=== PATIENT | male | born 1955 | race Caucasian/White ===

== ENCOUNTER 2017-09-26 09:23 | Emergency (ER) | payer BC, SELFPAY ==
[2017-09-26 09:52] VITALS: BP 142/79; PULSE 83; RESP 16; TEMP 36.4; O2SAT 96; BMI 35.3
--- NOTE | 2017-09-26 10:15 | HMH.EDUTC ---
[facility] – [place] Disposition Clinical Impression: Cough Disposition: Home, Self-Care Condition on Discharge: Good Instructions: Cough Additional Instructions: Take medication as prescribed If symptoms do not improve or get worse, go see family doctor for further evaluation and work up Return if needed Make sure to drink plenty of fluids Rest, Sleep propped up at night may help with coughing Use Vaporizer or Humidifier at night may help with coughing and soothing of throat Prescriptions: Dextromethorphan Polistirex [Delsym] 10 ml PO Q12H PRN #200 jacob.er.12h PRN Reason: Cough Guaifenesin/Dextromethorphan [Mucinex Dm ER 1,200-60 mg Tab] 1 each PO Q12H #10 tab.er.12h Referrals: Will Ramirez [Primary Care Provider] - Time of Disposition: 10:46 Medical Decision Making - Medical Records Medical records reviewed: Yes: I reviewed the patient's medical records. Vital Signs: 09/26/17 09:52 Temperature 97.6 F Temperature Source Temporal Artery Scan Pulse Rate [Right Ulnar] 83 Respiratory Rate 16 Blood Pressure [Right Arm] 142/79 Blood Pressure Mean [Right Arm] 100 Blood Pressure Source [Right Arm] Automatic Cuff Blood Pressure Position [Right Arm] Sitting 02 Sat by Pulse Oximetry 96 Oxygen Delivery Method Room Air - Moe Inquiry Pt receiving controlled substance: No Moe was queried for this patient: No - Reevaluation(s) Time: 10:31 (Recommended chest xray and patient refused) [facility] [place] HPI - General Stated complaint: cough Mode of Arrival: Family Vehicle Source of Information: Patient Limitations: No Limitations Description of Symptoms (Recalled from Triage Doc. by RN): PT WAS DIAGNOSED WITH THE FLU SATURDAY BUT NOW COUGH IS WORSE. HEENT Symptoms (Recalled from RN notes): No Resp Symptoms (Recalled from RN notes): Yes (COUGH) Skin Symptoms (Recalled from RN notes): No MS Symptoms (Recalled from RN notes): No Functional Status (Recalled from RN notes): NA - History of Present Illness Provider Complaint: Patient states that his was diagnosed on Saturday with the flu State that he also got sick on Saturday and diagnosed himself with the flu State that he has not got any better and his cough is getting worse and he thinks he may need some prescription antibiotics - Related Data Home Medications Medication Instructions Recorded Confirmed Fenofibric Acid (Choline) 135 mg PO DAILY 09/26/17 09/26/17 [Fenofibric Acid] Lisinopril [Lisinopril 40mg Tablet] 40 mg PO DAILY 09/26/17 09/26/17 Pitavastatin Calcium [Livalo] 2 mg PO DAILY 09/26/17 09/26/17 Previous Rx's Medication Instructions Recorded Dextromethorphan Polistirex 10 ml PO Q12H PRN #200 jacob.er.12h 09/26/17 [Delsym] Guaifenesin/Dextromethorphan 1 each PO Q12H #10 tab.er.12h 09/26/17 [Mucinex Dm ER 1,200-60 mg Tab] Allergies Allergy/AdvReac Type Severity Reaction Status Date / Time No Known Allergies Allergy Verified 09/26/17 09:57 - Worker's Comp Is this a Worker's Comp case?: No [facility] History I have reviewed the patient's past medical history: Yes Medical History: Denies:: Cancer, Diabetes Mellitus Type 1, Diabetes Mellitus Type 2, MRSA Laterality Cases: Right: Cataract Amputation: No - *Social History Smoking Status: Never smoker Alcohol Intake: never - Psychiatric History Expresses thoughts of harming self/others: None Suicide Plan Description: No Plan ROS Obtained: Yes All systems reviewed & no additional complaints - Constitutional Constitutional: Reports body ache, Reports chills, Reports fever(s) - ENT Ears, Nose, Mouth, and Throat: Reports sore throat - Respiratory Respiratory: Yes cough, Yes non-productive cough Physical Exam - General General appearance: alert, in no apparent distress - ENT ENT exam: Present: normal exam, normal oropharynx, mucous membranes moist, TM's normal bilaterally, normal external ear exam - Respiratory Respiratory exam: Present: normal lung sounds bilaterally
--- NOTE | 2017-09-26 10:24 | ED_ITS ---
[facility] [place] Clinical Impression: Cough Disposition: Home, Self-Care Condition on Discharge: Good Instructions: Cough Additional Instructions: Take medication as prescribed If symptoms do not improve or get worse, go see family doctor for further evaluation and work up Return if needed Make sure to drink plenty of fluids Rest, Sleep propped up at night may help with coughing Use Vaporizer or Humidifier at night may help with coughing and soothing of throat Prescriptions: Dextromethorphan Polistirex [Delsym] 10 ml PO Q12H PRN #200 jacob.er.12h PRN Reason: Cough Guaifenesin/Dextromethorphan [Mucinex Dm ER 1,200-60 mg Tab] 1 each PO Q12H #10 tab.er.12h Referrals: Will Ramirez [Primary Care Provider] - Time of Disposition: 10:46 Medical Decision Making - Medical Records Medical records reviewed: Yes: I reviewed the patient's medical records. Vital Signs: 09/26/17 09:52 Temperature 97.6 F Temperature Source Temporal Artery Scan Pulse Rate [Right Ulnar] 83 Respiratory Rate 16 Blood Pressure [Right Arm] 142/79 Blood Pressure Mean [Right Arm] 100 Blood Pressure Source [Right Arm] Automatic Cuff Blood Pressure Position [Right Arm] Sitting 02 Sat by Pulse Oximetry 96 Oxygen Delivery Method Room Air - Moe Inquiry Pt receiving controlled substance: No Moe was queried for this patient: No - Reevaluation(s) Time: 10:31 (Recommended chest xray and patient refused) [facility] [place] HPI - General Stated complaint: cough Mode of Arrival: Family Vehicle Source of Information: Patient Limitations: No Limitations Description of Symptoms (Recalled from Triage Doc. by RN): PT WAS DIAGNOSED WITH THE FLU SATURDAY BUT NOW COUGH IS WORSE. HEENT Symptoms (Recalled from RN notes): No Resp Symptoms (Recalled from RN notes): Yes (COUGH) Skin Symptoms (Recalled from RN notes): No MS Symptoms (Recalled from RN notes): No Functional Status (Recalled from RN notes): NA - History of Present Illness Provider Complaint: Patient states that his was diagnosed on Saturday with the flu State that he also got sick on Saturday and diagnosed himself with the flu State that he has not got any better and his cough is getting worse and he thinks he may need some prescription antibiotics - Related Data Home Medications Medication Instructions Recorded Confirmed Fenofibric Acid (Choline) 135 mg PO DAILY 09/26/17 09/26/17 [Fenofibric Acid] Lisinopril [Lisinopril 40mg Tablet] 40 mg PO DAILY 09/26/17 09/26/17 Pitavastatin Calcium [Livalo] 2 mg PO DAILY 09/26/17 09/26/17 Previous Rx's Medication Instructions Recorded Dextromethorphan Polistirex 10 ml PO Q12H PRN #200 jacob.er.12h 09/26/17 [Delsym] Guaifenesin/Dextromethorphan 1 each PO Q12H #10 tab.er.12h 09/26/17 [Mucinex Dm ER 1,200-60 mg Tab] Allergies Allergy/AdvReac Type Severity Reaction Status Date / Time No Known Allergies Allergy Verified 09/26/17 09:57 - Worker's Comp Is this a Worker's Comp case?: No [facility] History I have reviewed the patient's past medical history: Yes Medical History: Denies:: Cancer, Diabetes Mellitus Type 1, Diabetes Mellitus Type 2, MRSA Laterality Cases: Right: Cataract Amputation: No - *Social History Smoking Status: Never smoker Alcohol Intake: never - Psychi
[2017-09-26 11:00] LABS: UTC Influenza A Antigen Negative (Negative); UTC Influenza B Antigen Negative (Negative)
== END 2017-09-26 10:48 | disposition home or self-care (01) ==
PROVIDERS: Emergency Provider Nurse Practitioner; PCP Family Medicine
DX: R05 Cough (principal)
CPT/HCPCS: 87804; 99201

== ENCOUNTER 2022-02-16 15:52 | Emergency (ER) | payer MEDICARE, SELFPAY ==
[2022-02-16 16:15] VITALS: BP 140/88; PULSE 89; RESP 19; TEMP 36.9; O2SAT 97; BMI 34.9
--- NOTE | 2022-02-16 16:35 | HMH.EDUTC ---
[facility] [place] Clinical Impression: Sinusitis Qualifiers: Sinusitis location: unspecified location Chronicity: unspecified Qualified Code(s): J32.9 - Chronic sinusitis, unspecified Otitis media Qualifiers: Otitis media type: unspecified Laterality: right Qualified Code(s): H66.91 - Otitis media, unspecified, right ear Disposition: Home, Self-Care Condition on Discharge: Good Instructions: Sinusitis, Middle Ear Infection, DI for Sinusitis, Amoxicillin and Clavulanic Acid Additional Instructions: *Monitor Temp, Over the counter Motrin or Tylenol as directed/as needed Tylenol every 4 hours and Motrin every 6 hours (as long as your family doctor has told you that you can take it) for fever or pain. and straight to ER if unable to lower temp less than 101.0 after medication given *Warm salt water gargles may help to soothe the throat *Throat Lozenges *Warm fluids like tea with honey may help to soothe the throat *Sleep elevated *Humidifier/Vaporizer *Flonase 2 sprays in each nostril daily but be aware that it may take 2-3 days before you notice improvement Take medication as prescribed Follow up IMMEDIATELY for new or worsening symptoms or no Noticeable improvement over the next 48-72 hours. 911 for difficulty breathing or swallowing Prescriptions: Dextromethorphan Polistirex [Delsym] 10 ml PO Q12HP PRN #200 ml PRN Reason: Cough Transmission Status: Received by [facility] # Fluticasone Propionate [Flonase 50mcg nasal spray 16gm] 1 spr NS DAILY #1 each Transmission Status: Received by [facility] # Cefdinir [Omnicef 300mg Capsule] 300 mg PO BID #20 cap Transmission Status: Received by [facility] # Referrals: Will Ramirez [Primary Care Provider] - As needed Time of Disposition: 16:48 Medical Decision Making - Moe Inquiry Pt receiving controlled substance: No Moe was queried for this patient: No Vital Signs: 02/16/22 16:15 02/16/22 16:54 Temperature 98.4 F 98.4 F Temperature Source Oral Pulse Rate 89 Pulse Rate [Right Brachial] 89 Respiratory Rate 19 19 Blood Pressure 140/88 Blood Pressure [Right Arm] 140/88 Blood Pressure Mean [Right Arm] 105 Blood Pressure Source [Right Arm] Automatic Cuff Blood Pressure Position [Right Arm] Sitting 02 Sat by Pulse Oximetry 97 Oxygen Delivery Method Room Air [facility] [place] - General Stated complaint: Head congestion,Ears,Sinus,Cough Time Seen by Provider: 02/16/22 16:35 Mode of Arrival: Ambulatory Source of Information: Patient Limitations: No Limitations Description of Symptoms (Recalled from Triage Doc. by RN): PATIENT C/O EAR ACHE, SINUS CONGESTION, AND COUGH X 10 DAYS HEENT Symptoms (Recalled from RN notes): Yes Resp Symptoms (Recalled from RN notes): Yes Skin Symptoms (Recalled from RN notes): No MS Symptoms (Recalled from RN notes): No Functional Status (Recalled from RN notes): WNL - History of Present Illness Provider Complaint: Patient states that he has been having sinus pain and pressure along with pain in both ears, scratchy throat and cough States that today he was still not feeling well and ear was hurting worse so he came in to get checked out - Related Data Home Medications Medication Instructions Recorded Confirmed Fenofibric Acid (Choline) 135 mg PO DAILY 09/26/17 02/16/22 [Fenofibric Acid] Pitavastatin Calcium [Livalo] 2 mg PO DAILY 09/26/17 02/16/22 lisinopriL [Lisinopril 40mg Tablet] 40 mg PO DAILY 09/26/17 02/16/22 Previous Rx's Medication Instructions Recorded Cefdinir [Omnicef 300mg Capsule] 300 mg PO BID #20 cap 02/16/22 Dextromethorphan Polistirex 10 ml PO Q12HP PRN #200 ml 02/16/22 [Delsym] Fluticasone Propionate [Flonase 1 spr NS DAILY #1 each 02/16/22 50mcg nasal spray 16gm] Allergies Allergy/AdvReac Type Severity Reaction Status Date / Time No Known Allergies Allergy Verified 09/26/17 09:57 - Worker's Comp Is this a Worker's Comp
[2022-02-16 16:54] VITALS: BP 140/88; PULSE 89; RESP 19; TEMP 36.9; O2SAT 97
== END 2022-02-16 17:06 | disposition home or self-care (01) ==
PROVIDERS: Emergency Provider Nurse Practitioner; PCP Family Medicine
DX: J32.9 Chronic sinusitis, unspecified (principal); H66.91 Otitis media, unspecified, right ear; Z79.899 Other long term (current) drug therapy
CPT/HCPCS: 99212; G0463

== ENCOUNTER → 2022-06-07 10:41 | Outpatient (CLI) | payer MEDICARE, SELFPAY ==
--- NOTE | 2022-06-07 10:46 | MR_ITS ---
FINAL REPORT CLINICAL HISTORY: THORACIC PAIN HX 2 LUMBAR SURGERIES LAST SURGERY IN 2004. MID BACK PAIN NEAR SCAPULAS. WORSE ON RIGHT SIDE. LOW BACK PAIN WITH BILATERAL HIP PAIN. FINDINGS: Multiplanar MR imaging of the thoracic spine was performed without contrast. On the sagittal T2-weighted images, there is mild decreased signal throughout the thoracic discs. The vertebrae are normal height. There is no malalignment. The thoracic cord demonstrates normal signal and configuration. There is no evidence of canal stenosis or cord compression. On the axial images, no focal disc protrusion is identified. There is no evidence of significant canal stenosis. No paraspinous soft tissue abnormality is seen. IMPRESSION: No disc bulge or protrusion. Reviewed, Interpreted and Dictated by Tyler Rios MD Transcribed by Vu Diaz Authenticated and [facility]
--- NOTE | 2022-06-07 10:46 | MR_ITS ---
FINAL REPORT CLINICAL HISTORY: THORACIC PAIN HX 2 LUMBAR SURGERIES LAST SURGERY IN 2004. MID BACK PAIN NEAR SCAPULAS. WORSE ON RIGHT SIDE. LOW BACK PAIN WITH BILATERAL HIP PAIN. FINDINGS: Multiplanar MR imaging of the lumbar spine was performed without contrast. On the sagittal T2-weighted images, there is abnormal decreased signal throughout the lumbar discs. The vertebrae are of normal height. There is advanced disc space narrowing at L4-5. Endplate reactive signal changes are identified. The vertebral alignment is normal. L1-2: There is no significant canal stenosis or neural foraminal narrowing. L2-3: Mild annular disc bulge is present with mild bilateral neural foraminal narrowing. L3-4: Mild annular disc bulge is present. There is a left posterolateral disc protrusion with high-grade left neural foraminal narrowing. L4-5: Endplate hypertrophy is present. There is mild right and moderate left neural foraminal narrowing. L5-S1: There is no significant canal stenosis or neural foraminal narrowing. IMPRESSION: Significant left neural foraminal narrowing at L3-4 and L4-5, more evident at L3-4. Reviewed, Interpreted and Dictated by Tyler Rios MD Transcribed by Jenna Wilcox Authenticated and [facility]
== END ==
PROVIDERS: Visit Provider Orthopaedic Surgery
DX: M54.6 Pain in thoracic spine (principal); M54.50 Low back pain, unspecified
CPT/HCPCS: 72146; 72148; 76376

== ENCOUNTER 2023-05-29 15:11 | Emergency (ER) | payer MEDICARE, SELFPAY ==
[2023-05-29 15:12] VITALS: BP 163/73; PULSE 85; RESP 17; TEMP 36.7; O2SAT 98; BMI 36.2
--- NOTE | 2023-05-29 15:18 | HMH.EDGENADL ---
Discharge Plan Disposition Patient Disposition: Home, Self-Care Condition: Good Prescriptions Prescriptions: New methocarbamol 750 mg tablet 750 mg PO TID Qty: 90 0RF oxycodone 5 mg tablet 5 mg PO Q12H PRN (Reason: pain) Qty: 10 0RF No Action lisinopril 40 MG tablet 40 mg PO DAILY Patient Comments: fenofibric acid (choline) 135 MG capsule,delayed release(DR/EC) 135 mg PO DAILY Patient Comments: pitavastatin calcium [Livalo] 2 MG tablet 2 mg PO DAILY Patient Comments: cefdinir 300 MG capsule 300 mg PO BID Qty: 20 0RF dextromethorphan polistirex 30 MG/5 ML suspension,extended rel 12 hr 10 ml PO Q12HP PRN (Reason: Cough) Qty: 200 0RF fluticasone propionate 120 SPRAY bottle 1 spr NS DAILY Qty: 1 0RF Rx Instructions: one spray in each nostril daily Referrals Follow up/Referrals: Will Ramirez [Primary Care Provider] - See instructions Activity Restrictions/Add. Instructions Additional Instructions/Restrictions: Please return to the emergency department if you experience any new or worsening symptoms. Clinical Impressions Clinical Impression: Acute back pain Qualifiers: Back pain location: low back pain Back pain laterality: right Sciatica presence: without sciatica Qualified Code(s): M54.50 - Low back pain, unspecified Instructions Patient Instructions: DI for Acute Pain -- Adult Discharge ED Provider: Lokesh Torres Adult HPI General Chief complaint: PAIN Stated complaint: Back Pain Time Seen by Provider: 05/29/23 15:14 History of Present Illness HPI narrative: The patient presents with severe back pain, localized to a specific area described as like a fist. The pain is sharp and constant, with no radiation. The patient denies any pain with urination, chest pain, or other symptoms. The patient has a history of L4-L5 surgery and has experienced similar pain in the past, which resolved on its own. The patient is scheduled for an orthopedic appointment on June 26. The patient reports difficulty walking due to the pain, having to walk sideways and experiencing significant discomfort. There is no reported numbness, tingling, or changes in sensation, and no loss of control of bladder or bowels. The patient has previously seen an photogrammetric compilation specialist and had MRIs, which did not reveal any significant findings. The patient has also been evaluated for shingles in the past. Related Data Home Medications Medication Instructions Recorded Confirmed fenofibric acid (choline) 135 mg 135 mg PO DAILY Cholesterol 09/26/17 02/16/22 capsule,delayed release lisinopril 40 mg tablet 40 mg PO DAILY Hypertension 09/26/17 02/16/22 pitavastatin calcium 2 mg tablet 2 mg PO DAILY Cholesterol 09/26/17 02/16/22 (Livalo) Previous Rx's Medication Instructions Recorded cefdinir 300 mg capsule 300 mg PO BID #20 caps 02/16/22 dextromethorphan polistirex 30 10 ml PO Q12HP PRN Cough #200 mL 02/16/22 mg/5 mL oral susp ext.release 12hr fluticasone propionate 50 1 spr intranasal DAILY #1 ea 02/16/22 mcg/actuation nasal spray,suspension methocarbamol 750 mg tablet 750 mg PO TID #90 tabs 05/29/23 oxycodone 5 mg tablet 5 mg PO Q12H PRN pain #10 tabs 05/29/23 Allergies Allergy/AdvReac Type Severity Reaction Status Date / Time No Known Allergies Allergy Verified 09/26/17 09:57 [facility] Disclaimer: The information contained in this section may have been updated after the patient was seen, as this information can be updated by other users. Social History Smoking Status: Former smoker alcohol intake: never current occupational status: employed Travel in the last 8 weeks: None ROS Obtained: Yes Systems reviewed as appropriate & no additional complaints except as documented Physical Exam General General appearance: alert and in no apparent distress (Acute distress due to pain) Head Head exam: atraumatic and
--- NOTE | 2023-05-29 16:17 | CT_ITS ---
PROCEDURE INFORMATION: Exam: CT Pelvis Without Contrast; Skeletal Exam date and time: 05/29/2023 5:03 PM Age: 67 years old Clinical indication: Pelvic pain; Additional info: Acute back pain, unable to walk TECHNIQUE: Imaging protocol: Computed tomography of the pelvis without contrast. Exam focused on the skeleton. Radiation optimization: All CT scans at this facility use at least one of these dose optimization techniques: automated exposure control; mA and/or kV adjustment per patient size (includes targeted exams where dose is matched to clinical indication); or iterative reconstruction. REPORTING DATA: Count of CT and Cardiac NM exams in prior 12 months: This patient has received 0 known CTs and 0 known cardiac nuclear medicine studies in the 12 months prior to the current study. COMPARISON: MR LUMBAR SPINE WO CON 06/07/2022 11:06 AM FINDINGS: Urinary bladder: There is moderate distention of the urinary bladder. Vasculature: There is atherosclerotic disease of the visualized aorta and its major branch vessels. Bones/joints: Prior bilateral total hip arthroplasty with associated streak artifact that obscures evaluation of the pelvis. There is diffuse degenerative disease of the visualized osseous structures. There is diffuse osseous demineralization. Soft tissues: Unremarkable. IMPRESSION: 1. Status post bilateral hip arthroplasty without acute osseous injury identified. If concern persists, MRI would be more sensitive. 2. Bilateral hip arthroplasties with streak artifact that limits evaluation of the pelvis.
--- NOTE | 2023-05-29 16:17 | CT_ITS ---
PROCEDURE INFORMATION: Exam: CT Lumbar Spine Without Contrast Exam date and time: 05/29/2023 5:05 PM Age: 67 years old Clinical indication: Low back pain; Additional info: Acute back pain, unable to walk TECHNIQUE: Imaging protocol: Computed tomography of the lumbar spine without contrast. Radiation optimization: All CT scans at this facility use at least one of these dose optimization techniques: automated exposure control; mA and/or kV adjustment per patient size (includes targeted exams where dose is matched to clinical indication); or iterative reconstruction. REPORTING DATA: Count of CT and Cardiac NM exams in prior 12 months: This patient has received 0 known CTs and 0 known cardiac nuclear medicine studies in the 12 months prior to the current study. COMPARISON: MR LUMBAR SPINE WO CON 06/07/2022 11:06 AM FINDINGS: Limitations: Evaluation of the spinal canal is somewhat limited by the low soft tissue contrast of CT. If concern for injury persists, MRI would be more sensitive. Bones/joints: There is multilevel degenerative change with loss of intervertebral disc space and anterior osteophyte formation. There is diffuse osseous demineralization. There is partial sacralization of L5. There is straightening of the normal spinal curvature. Large disc ridge complex is noted at L4-L5 with projection into the spinal canal Vasculature: Scattered atherosclerotic disease of the arterial vasculature. Soft tissues: Unremarkable. IMPRESSION: Degenerative change of the lumbar spine without acute injury. Prominent disc ridge complex at L4-L5, similar to the examination 1 year prior. If concern persists, MRI would be more sensitive.
--- NOTE | 2023-05-29 17:00 | PC.NURSE ---
rad staff came out to nurses station stating pt in Ct room requesting the doctor come back and see him in CT room. Rad staff reports pt is upset. in ct room to speak with pt r/t ER MD was on a call with another physician. Explained to pt ER MD was unavailable so I came to check on pt until ER MD available. Pt reports unhappy with care from radiology staff. Reports he was fearing for his safety with the radiology staff that had brought him back to the CT room. Pt reported wanted to file a complaint against him . Notified malt house operator that pt would like to speak with her r/t complaint on radiology staff.
--- NOTE | 2023-05-29 17:29 | PC.NURSE ---
pt was given ice pack , visitor at [facility]
[2023-05-29 19:00] VITALS: BP 152/78; PULSE 79; RESP 18; TEMP 36.7; O2SAT 97
== END 2023-05-29 19:01 | disposition home or self-care (01) ==
PROVIDERS: Emergency Provider Emergency Medicine; PCP Family Medicine
DX: M54.50 Low back pain, unspecified (principal); Z87.891 Personal history of nicotine dependence
CPT/HCPCS: 72131; 72192; 99283; 99284